=== PATIENT | female | born 1960 ===

== ENCOUNTER 2019-03-10 22:51 | Emergency (ER) | payer MEDICAID ==
[~2019-03-10] VITALS: Ht 165.1 cm; Wt 72.7 kg
[2019-03-10 22:53] VITALS: Ht 165.1 cm; Wt 72.7 kg
[2019-03-10] MEDS ORDERED: CATAPRES0.1 MG (22:54)
[2019-03-10] MEDS ORDERED: SYNTHROID25 MCG PO (22:54)
[2019-03-10] MEDS ORDERED: CETIRIZINE HCL5 M1 (22:55)
[2019-03-10] MEDS ORDERED: PERCOCET 10-321 EAC1 (22:55)
[2019-03-10 23:48] LABS: BASOPHILS 0.1 % (0-2); EOSINOPHILS 0.1 % (0-7); HEMATOCRIT 46.9 % (36.0-48.0); IMMATURE GRANULOCYTES 0.6 % (0-5); LYMPHOCYTES 13.3 % (15-50); MCH 33.3 pg (26.0-34.0); MCHC 34.1 g/dL (31.0-37.0); MCV 97.5 fL (80.0-100.0); MONOCYTES 7.6 % (2-11); NEUTROPHILS 78.3 % (40-80); PLATELET COUNT 107 10x3/uL (130-400); RBC 4.81 10x6/uL (4.00-5.40); RDW 13.7 % (11.5-14.5); WBC 9.9 10x3/uL (4.8-10.8)
[2019-03-11 00:02] LABS: APTT 22.6 SECONDS (22.8-39.4); INR 1.06 (0.85-1.17); PROTIME 13.3 SECONDS (11.6-15.0)
[2019-03-11 00:09] LABS: ALBUMIN 3.6 g/dL (3.4-5.0); ALKALINE PHOSPHATASE 85 U/L (46-116); ALT (SGPT) 16 U/L (10-68); BILIRUBIN - TOTAL 0.52 mg/dL (0.2-1.3); CALC OSMOLALITY 286 mosm/kg (275-300); CALCIUM 9.1 mg/dL (8.5-10.1); CARBON DIOXIDE 31.2 mmol/L (21.0-32.0); CHLORIDE - SERUM 105 mmol/L (98-107); CREATININE - SERUM 0.7 mg/dL (0.6-1.3); GLUCOSE 119 mg/dL (74-106); POTASSIUM - SERUM 4.2 mmol/L (3.5-5.1); SODIUM 143 mmol/L (136-145); UREA NITROGEN 16 mg/dL (7-18); eGFR NON AFRICAN AMERICAN > 90 mL/min (90-120)
[2019-03-11] MEDS ORDERED: FLUTICASONE PRO16 GM NASAL (00:48)
[2019-03-11] MEDS ORDERED: AUGMENTIN 875-11 TAB PO (00:48)
[2019-03-11 01:43] VITALS: BP 163/96
== END 2019-03-11 01:43 | disposition home or self-care (01) ==
LOC: D.ER 22:51
PROVIDERS: Family Medicine
DX: J01.90 Acute sinusitis, unspecified (principal); R51 Headache